=== PATIENT | male | born 1950 | race Two or more races ===

== ENCOUNTER → 2024-09-04 | Day surgery (SDC) | payer OTHER ==
[2024-09-03 10:37] LABS: INR 1.11; PARTIAL THROMBOPLASTIN TIME 27.9 SECONDS (22.0-34.0)
[2024-09-03 10:53] LABS: ALBUMIN 3.8 gm/dL (3.4-5.0); BILIRUBIN TOTAL 0.93 mg/dL (0.3-1.2); CALCIUM 9.5 mg/dL (8.5-10.1); CREATININE SERUM 0.78 mg/dL (0.70-1.30); GFR 96.77; GLOBULINA 2.6 G/DL (2.4-3.5); POTASSIUM 4.92 mEq/L (3.5-5.1); TOTAL PROTEIN 6.4 gm/dL (6.4-8.2)
[2024-09-03 11:02] LABS: HEMOGLOBIN 12.2 g/dL (13-16.00); MEAN CELL VOLUME 96.9 fL (80.0-100.00); MEAN CORPUSCULAR HEMOGLOBIN 32.1 pg (27.00-32.0); MEAN CORPUSCULAR HGB CONC 33.1 g/dl (32.0-36.0); PLATELET COUNT 169 K/uL (150-450); RED BLOOD COUNT 3.82 M/uL (4.00-6.00); RED CELL DISTRIBUTION WIDTH 13.6 % (11.5-14.5)
[2024-09-03 11:31] VITALS: BP 124/67
[~2024-09-04] VITALS: Ht 167.6 cm; Wt 81.6 kg
[~2024-09-04] MED LIST: ATORVASTATIN CA10 MG; GLUCAGON 1 MG VIAL ONE; IOVERSOL 320 MG/ML - 50 ML VIAL IV ONE; METFORMIN HCL500 M3 PO; NEURONTIN300 MG; PROAIR RESPICL90 MCG; SUGAMMADEX SODIUM 200 MG/2 ML VIAL IV ONE; TAMS0.4C; TOPROL XL25 M1
== END | disposition home or self-care (01) ==
LOC: CIR.AMB 06:35
PROVIDERS: ATTEND Internal Medicine Gastroenterology
DX: K80.10 Calculus of gallbladder with chronic cholecystitis without obstruction (principal); R93.3 Abnormal findings on diagnostic imaging of other parts of digestive tract

== ENCOUNTER 2025-04-12 12:24 | Inpatient (IN) | payer OTHER ==
[~2025-04-12] VITALS: Ht 167.6 cm; Wt 73.5 kg
[~2025-04-12 12:24] MED LIST changes: -GLUCAGON 1 MG VIAL ONE; -IOVERSOL 320 MG/ML - 50 ML VIAL IV ONE; -SUGAMMADEX SODIUM 200 MG/2 ML VIAL IV ONE; +TOPROL XL50 M1 PO
[2025-04-12] MEDS ORDERED: ELIQUIS5 MG PO (14:29)
[2025-04-12] MEDS ORDERED: JARDIANCE10 MG PO (14:29)
[2025-04-12] MEDS ORDERED: FOLIC ACID1 MG PO (14:32)
--- NOTE | 2025-04-12 14:38 | NUR ---
PACIENTE ALERTA Y ORIENTADO X3 REFIERE TENER KALYAN CAIDA EN EL [place]. FAMILIAR REIERE TENER GLOBULOS ROJOS BAJOS QUIEN REFIERE QUE EL Dr. OLSEN SUBIR NIVELES DE HEMOGLOBINA PARA CIRUGIA 04/16/25. SE MIDE S/V Y SE UBICA EN PAS[place].
[2025-04-12 15:32] LABS: BASO % 0.3 % (0.1-1.2); EOS # 0.08 (0.04-0.54); EOS % 1.2 % (0.7-7.0); LYMPH # 1.30 (1.18-3.74); LYMPH % 19.1 % (19.3-53.1); MEAN PLATELET VOLUME 9.80 fl (9.4-12.4); MONO # 0.65 (0.24-0.82); MONO % 9.5 % (4.7-12.5); NEUT # 4.74 (1.56-6.13); NEUT % 69.6 % (34.0-71.1); RED CELL DISTRIBUTION WIDTH 16.7 % (11.6-14.4)
[2025-04-12 16:09] LABS: INR 1.46
[2025-04-12 16:15] LABS: ALT/SGPT 101.0 U/L (12-78); AST/SGOT 94.0 U/L (15-37); BILIRUBIN TOTAL 0.73 mg/dL (0.3-1.2); BUN CREA RATIO 19.0 (7.0-25.0); CREATININE SERUM 1.66 mg/dL (0.70-1.30); GFR 40.48; GLOBULINA 2.9 G/DL (2.4-3.5); GLUCOSE FASTING 115.0 mg/dL (65-100); OSMOLALITY SERUM 294.0 MOSM/KG (275-295)
[2025-04-12 16:25] LABS: URINE APPEARANCE Clear; URINE BILIRRUBIN Negative (NEGATIVE); URINE BLOOD Negative; URINE COLOR Yellow; URINE KETONE Negative (NEGATIVE); URINE LEUKOCYTE Negative; URINE NITRATE Negative; URINE PROTEIN Negative (NEGATIVE); URINE UROBILINOGEN 0.2 E.U./dl
[2025-04-12 16:29] LABS: URINE BACTERIA 15.5 uL (0.0-1933); URINE CAST 3.81 uL (0.0-1.40); URINE EPITHELIAL CELLS 43.2 uL (0.0-38.8); URINE RBC 3.0 uL (0.0-20.8); URINE WBC 6.3 uL (0.0-23.2)
[2025-04-12 17:02] LABS: URINE GLUCOSE >=1000 MG/DL (NEGATIVE)
[2025-04-12] MEDS ORDERED: 0.9 % SODIUM CHLORIDE 1,000 ML IV SCH (18:00)
[2025-04-12] MEDS ORDERED: PANTOPRAZOLE SODIUM 80 MG in 0.9 % SODIUM CHLORIDE 100 ML IV SCH (18:15)
[2025-04-12] MEDS ORDERED: ONDANSETRON HCL 4 MG in 0.9 % SODIUM CHLORIDE 50 ML IV PRN (18:30)
[2025-04-12] MEDS ORDERED: ACETAMINOPHEN 500 MG GEL..CAP PO PRN (18:30)
[2025-04-12 20:32] VITALS: BP 108/63
[2025-04-13] VITALS (7 sets, daily range): BP systolic 90–95; BP diastolic 42–60; O2SAT 95–99
[2025-04-13] MEDS ORDERED: GABAPENTIN 300 MG CAPSULE PO SCH (09:00)
[2025-04-13] MEDS ORDERED: TAMSULOSIN HCL 0.4 MG CAP PO SCH (09:00)
[2025-04-13] MEDS ORDERED: METOPROLOL SUCCINATE 25 MG TAB.SR.24H PO SCH (09:00)
[2025-04-13] MEDS ORDERED: ATORVASTATIN CALCIUM 10 MG TABLET PO SCH (09:00)
[2025-04-14 02:50] VITALS: BP 88/51; O2SAT 96
[2025-04-14 05:29] VITALS: O2SAT 97
[2025-04-14 09:14] VITALS: BP 99/64; O2SAT 90
[2025-04-14 17:19] VITALS: O2SAT 98
[2025-04-14 18:35] VITALS: BP 82/49
[2025-04-14 19:37] LABS: BASO % 0.5 % (0.1-1.2); EOS # 0.07 (0.04-0.54); EOS % 1.6 % (0.7-7.0); LYMPH # 0.91 (1.18-3.74); LYMPH % 20.6 % (19.3-53.1); MEAN PLATELET VOLUME 10.10 fl (9.4-12.4); MONO # 0.42 (0.24-0.82); MONO % 9.5 % (4.7-12.5); NEUT # 2.98 (1.56-6.13); NEUT % 67.6 % (34.0-71.1); RED CELL DISTRIBUTION WIDTH 17.7 % (11.6-14.4)
[2025-04-14 20:17] LABS: BUN CREA RATIO 20.0 (7.0-25.0); CREATININE SERUM 1.06 mg/dL (0.70-1.30); GFR 67.93; GLUCOSE FASTING 111.0 mg/dL (65-100); OSMOLALITY SERUM 296.0 MOSM/KG (275-295)
[2025-04-14 21:31] VITALS: O2SAT 97
[2025-04-15] VITALS (8 sets, daily range): BP systolic 93–141; BP diastolic 53–60; O2SAT 89–98
[2025-04-15 15:51] LABS: BASO % 0.4 % (0.1-1.2); EOS # 0.07 (0.04-0.54); EOS % 1.4 % (0.7-7.0); LYMPH # 1.03 (1.18-3.74); LYMPH % 20.5 % (19.3-53.1); MEAN PLATELET VOLUME 10.10 fl (9.4-12.4); MONO # 0.53 (0.24-0.82); MONO % 10.5 % (4.7-12.5); NEUT # 3.37 (1.56-6.13); NEUT % 67.0 % (34.0-71.1); RED CELL DISTRIBUTION WIDTH 18.4 % (11.6-14.4)
[2025-04-15] MEDS ORDERED: SOD FERRIC GLUC COMPLX/SUCROSE 62.5 MG in 0.9 % SODIUM CHLORIDE 50 ML IV SCH (17:00)
[2025-04-15] MEDS ORDERED: Cyanocobalamin/Mecobalamin 1 TAB.SL SL SCH (17:00)
[2025-04-16] VITALS (9 sets, daily range): BP systolic 94–103; BP diastolic 54–60; O2SAT 93–100
[2025-04-16 06:44] LABS: ALT/SGPT 175.0 U/L (12-78); AST/SGOT 126.0 U/L (15-37); BILIRUBIN TOTAL 0.9 mg/dL (0.3-1.2); BUN CREA RATIO 17.0 (7.0-25.0); CREATININE SERUM 0.88 mg/dL (0.70-1.30); GFR 84.2; GLOBULINA 2.6 G/DL (2.4-3.5); GLUCOSE FASTING 88.0 mg/dL (65-100); OSMOLALITY SERUM 295.0 MOSM/KG (275-295)
[2025-04-16] MEDS ORDERED: POTASSIUM BICARBONATE/CIT AC 25 MEQ TABLET.EFF PO SCH (17:55)
[2025-04-16] MEDS ORDERED: SODIUM CHLORIDE 0.45 % 1,000 ML IV SCH (18:00)
[2025-04-17] VITALS (8 sets, daily range): BP systolic 95–111; BP diastolic 60–67; O2SAT 94–98
[2025-04-18] VITALS (9 sets, daily range): BP systolic 86–108; BP diastolic 48–66; O2SAT 92–98
[2025-04-18 09:52] LABS: BASO % 0.3 % (0.1-1.2); EOS # 0.02 (0.04-0.54); EOS % 0.3 % (0.7-7.0); LYMPH # 0.83 (1.18-3.74); LYMPH % 13.7 % (19.3-53.1); MEAN PLATELET VOLUME 10.50 fl (9.4-12.4); MONO # 0.66 (0.24-0.82); MONO % 10.9 % (4.7-12.5); NEUT # 4.49 (1.56-6.13); NEUT % 74.5 % (34.0-71.1); RED CELL DISTRIBUTION WIDTH 17.8 % (11.6-14.4)
[2025-04-18 10:29] LABS: ALT/SGPT 123.0 U/L (12-78); AST/SGOT 63.0 U/L (15-37); BILIRUBIN TOTAL 1.62 mg/dL (0.3-1.2); BUN CREA RATIO 17.0 (7.0-25.0); CREATININE SERUM 0.78 mg/dL (0.70-1.30); GFR 96.77; GLOBULINA 2.8 G/DL (2.4-3.5); GLUCOSE FASTING 93.0 mg/dL (65-100); OSMOLALITY SERUM 287.0 MOSM/KG (275-295)
[2025-04-19] VITALS (8 sets, daily range): BP systolic 91–107; BP diastolic 59–66; O2SAT 95–98
[2025-04-19] MEDS ORDERED: AMIODARONE HCL 900 MG in DEXTROSE 5 % IN WATER 500 ML IV SCH ×2 (14:45→15:00)
[2025-04-19] MEDS ORDERED: BENZONATATE 100 MG CAPSULE PO SCH (17:00)
[2025-04-19] MEDS ORDERED: METOPROLOL SUCCINATE 50 MG TAB.SR.24H PO SCH (17:00)
[2025-04-20] VITALS (10 sets, daily range): BP systolic 81–115; BP diastolic 52–68; O2SAT 90–98
[2025-04-20] MEDS ORDERED: ATORVASTATIN CALCIUM 20 MG TABLET PO SCH (09:00)
[2025-04-20 12:04] LABS: ob POSITIVE (NEGATIVE)
[2025-04-20] MEDS ORDERED: GABAPENTIN 300 MG CAPSULE PO SCH (21:00)
[2025-04-20] MEDS ORDERED: AMIODARONE HCL 200 MG TABLET PO STA (23:12)
[2025-04-21] VITALS (9 sets, daily range): BP systolic 93–126; BP diastolic 60–73; O2SAT 95–97
[2025-04-21] MEDS ORDERED: AMIODARONE HCL 200 MG TABLET PO SCH (09:00)
[2025-04-22] VITALS (8 sets, daily range): BP systolic 93–96; BP diastolic 57–64; O2SAT 90–99
[2025-04-22] MEDS ORDERED: GABAPENTIN300 MG PO (16:32)
[2025-04-22] MEDS ORDERED: Neurin-Sl Tablet Sl SL (16:32)
[2025-04-22] MEDS ORDERED: INTEGRA PLUS C1 EACH PO (16:32)
[2025-04-22] MEDS ORDERED: AMIODARONE HCL200 MG PO (16:32)
[2025-04-22] MEDS ORDERED: LIPITOR20 MG PO (16:32)
[2025-04-22] MEDS ORDERED: TOPROL XL50 M1 PO (16:32)
[2025-04-22] MEDS ORDERED: TAMS0.4C PO (16:32)
[2025-04-22] MEDS ORDERED: URSO FORTE500 MG PO (16:32)
== END 2025-04-22 16:56 | disposition home or self-care (01) | DRG 683 ==
LOC: ER 12:25 → MEDJ 20:19 → SEC-K 20:19 → MEDJ 04-13 01:47
PROVIDERS: Internal Medicine; Internal Medicine Nephrology; Physician Assistant Medical; ADMIT Internal Medicine; ATTEND Internal Medicine
PROC: BR20ZZZ Computerized Tomography (CT Scan) of Cervical Spine (ICD-10-PCS; principal; 2025-04-12)
PROC: BW28ZZZ Computerized Tomography (CT Scan) of Head (ICD-10-PCS; 2025-04-12)
PROC: BT4JZZZ Ultrasonography of Kidneys and Bladder (ICD-10-PCS; 2025-04-12)
PROC: 4A12X4Z Monitoring of Cardiac Electrical Activity, External Approach (ICD-10-PCS; 2025-04-13)
PROC: 30233N1 Transfusion of Nonautologous Red Blood Cells into Peripheral Vein, Percutaneous Approach (ICD-10-PCS; 2025-04-13)
PROC: B246ZZZ Ultrasonography of Right and Left Heart (ICD-10-PCS; 2025-04-15)
DX: N17.8 Other acute kidney failure (principal); I50.20 Unspecified systolic (congestive) heart failure; K92.1 Melena; E86.0 Dehydration; D64.89 Other specified anemias; I95.9 Hypotension, unspecified; K80.20 Calculus of gallbladder without cholecystitis without obstruction; I51.9 Heart disease, unspecified; I11.0 Hypertensive heart disease with heart failure; E78.5 Hyperlipidemia, unspecified